=== PATIENT | female | born 2000 | race Asian ===

== ENCOUNTER 2019-03-03 16:06 | Emergency (ER) | payer OTHER ==
[~2019-03-03] VITALS: Ht 162.6 cm; Wt 54.4 kg
--- NOTE | 2019-03-03 16:06 | NUR ---
Patient to ER bed 7 to gown for evaluation. Side rails up. Assumed care.
--- NOTE | 2019-03-03 16:07 | NUR ---
Patient AAOx4 accompanied by friend to ER after allergic reaction to peanuts after eating acai bowl. Patient presents to ER with SOB, redness, and mild facial swelling. Patient reports PMH of asthma and eczema. Patient reports allergies to all nuts, all seafood, eggs, and dander. Patient placed on oxygen via simple mask and IV line started in left AC. Patient states she feels better with oxygen and medications per MD order. No signs or symptoms of acute distress noted. Respirations even and unlabored. Will continue to monitor.
[2019-03-03 16:10] VITALS: BP_SYST 153
--- NOTE | 2019-03-03 16:10 | NUR ---
ER Dr. Monterroso at bedside examining patient.
[2019-03-03] MEDS ORDERED: DIPHENHYDRAMINE HCL 25 MG CAPSULE PO ONE (16:15)
[2019-03-03] MEDS ORDERED: DIPHENHYDRAMINE INJ 50 MG/ML VIAL IVP ONE ×2 (16:30→17:45)
[2019-03-03] MEDS ORDERED: methylPREDNISolone SOD SUCC/PF 62.5 MG/ML VIAL IVP ONE (16:30)
[2019-03-03] MEDS ORDERED: NACL 0.9% 1,000 ML IV ONE (16:45)
[2019-03-03] MEDS ORDERED: EPINEPHrine 1 MG/ML AMP IM ONE (16:45)
--- NOTE | 2019-03-03 17:47 | NUR ---
PT WITH HIVES ALL OVER, ICE PACKS GIVEN REQUESTED.
[2019-03-03 18:33] VITALS: BP_SYST 124
--- NOTE | 2019-03-03 18:35 | NUR ---
Patient given written and verbal discharge instructions and verbalizes understanding. ER MD discussed with patient the results and treatment provided. Patient in stable condition. ID arm band removed. IV catheter removed intact and dressing applied, no active bleeding. Rx of Epipen and Prednisone given. Patient educated on pain management and to follow up with PMD. Pain Scale 0/10 . Opportunity for questions provided and answered. Medication side effect fact sheet provided.
== END 2019-03-03 18:33 | disposition home or self-care (01) ==
LOC: SED 16:06
DX: T78.1XXA Other adverse food reactions, not elsewhere classified, initial encounter (principal); Y92.89 Other specified places as the place of occurrence of the external cause
CPT/HCPCS: 96372; 96374; 96375; 99283; J0171; J1200; J2930; J7030; Q0163